=== PATIENT | female | born 1970 | race Caucasian/White ===

== ENCOUNTER 2021-12-27 15:34 | Outpatient (CLI) | payer OTHER, SELFPAY | END 2021-12-27 15:35 | disposition home or self-care (01) | LOC: LKVREF 15:39 | PROVIDERS: PCP Family Medicine; Visit Provider Nurse Practitioner Family | DX: F41.9 Anxiety disorder, unspecified (principal); Z79.899 Other long term (current) drug therapy ==

== ENCOUNTER 2022-01-08 13:32 | Outpatient (CLI) | payer OTHER, SELFPAY ==
--- NOTE | 2022-01-08 14:00 | CRLHL7_ITS ---
For Patients: As a result of the Century Cures Act, medical imaging exams and procedure reports are released immediately into your electronic medical record. You may view this report before your referring provider. If you have questions, please contact your health care provider. INDICATION: Delusional disorders. TECHNIQUE: Brain MRI without contrast. The following sequences were obtained: Sagittal T1 weighted sequence. DWI and ADC mapping sequences. Axial FLAIR and VINOD T2 weighted sequences. COMPARISON: None FINDINGS: No evidence of acute ischemia. No evidence of acute or chronic intracranial blood products. No pathologic intracranial signal abnormality. No mass effect or herniation. No hydrocephalus or extra-axial collections. The pituitary gland, parasellar structures and optic chiasm are normal. Posterior fossa is normal. All the major intracranial vascular structures demonstrate normal flow-related signal. The orbital contents are normal. No calvarial or skull base marrow replacing process. No obstructive sinus disease. No extracranial soft tissue findings. IMPRESSION: 1. No significant intracranial abnormality. Dictated by Cole Zavala MD @ 01/08/2022 7:17:53 PM (Electronically Signed)
== END 2022-01-08 13:33 | disposition home or self-care (01) ==
LOC: MRI 13:33
PROVIDERS: PCP Family Medicine; Visit Provider Nurse Practitioner Family
DX: F22 Delusional disorders (principal)
CPT/HCPCS: 70551

== ENCOUNTER 2024-10-18 15:28 | Outpatient (CLI) | payer OTHER, SELFPAY ==
--- NOTE | 2024-10-18 16:00 | MR_ITS ---
EXAM: MRI of the RIGHT ANKLE CLINICAL HISTORY: Pain and right ankle. Evaluate for Achilles tendon rupture. Injury. COMPARISONS: None available. TECHNICAL: MRI sequences of the right ankle: Axials: PD, T2FS Coronals: PD, T2FS Sagittals: PD, T2, STIR Axial oblique: PDFS Sedation: None Contrast: None FINDINGS: Joints and osseous structures: No fracture, subluxation, dislocation, tarsal coalition, or talar dome osteochondral lesion. Ligaments: Syndesmotic: Mild irregularity of the anterior inferior tibiofibular ligament and mild irregular spurring at of the distal fibula and tibia at the attachments of the anterior inferior tibiofibular ligament are findings consistent with sequelae of chronic sprain injury. The posterior inferior tibiofibular ligament and interosseous membrane are unremarkable. Anterior talofibular: Ill-definition and irregularity. Calcaneofibular: Ill definition and irregularity. Posterior talofibular: Intact. Deltoid: Unremarkable. Spring: Unremarkable. Sinus tarsi: Intact lateral cervical and medial interosseous ligaments. Bifurcate: Unremarkable lateral calcaneonavicular and medial calcaneocuboid ligaments. Calcaneocuboid: Unremarkable medial, dorsolateral and plantar ligaments. Lisfranc ligament complex: Not completely covered in the vopge-[id number] of this study. Flexor tendons: Posterior tibial: Intact. There are foci of mild edema-like signal within a type II accessory navicular and within the immediately adjacent portion of the navicular proper. Flexor digitorum longus: Intact. Flexor hallucis longus: Intact. Peroneal tendons: Mild peroneus longus tendinopathy from just above and extending just below the level of the distal fibular tip. The peroneus brevis tendon is within normal limits. No lateral subluxation. Extensor tendons: Tibialis anterior: Intact. Extensor hallucis longus: Intact. Extensor digitorum longus: Intact. Achilles tendon: Rupture of the Achilles tendon at the terminal myotendinous junction with proximal tendon retraction 7.5 cm proximal to the calcaneal insertion and distal tendon retraction 5.3 cm proximal to the calcaneal insertion with a gap of 2.2 cm between the torn tendon ends. Marked underlying Achilles tendinopathy. Mild to moderate retrocalcaneal bursitis. Plantar aponeurosis: Unremarkable. Moderately sized plantar calcaneal enthesophyte. Sinus Tarsi:?The sinus tarsi fat is intact. Tarsal tunnel: Unremarkable. IMPRESSION: 1. Rupture of the Achilles tendon at the terminal myotendinous junction with proximal tendon retraction 7.5 cm proximal to the calcaneal insertion and distal tendon retraction 5.3 cm proximal to the calcaneal insertion with a gap of 2.2 cm between the torn tendon ends. Marked underlying Achilles tendinopathy. Mild to moderate retrocalcaneal bursitis. 2. Ill-definition and irregularity of the anterior talofibular and calcaneofibular ligaments are findings consistent with sequelae of chronic sprain injuries. No acute ligamentous injury. 3. Mild irregularity of the anterior inferior tibiofibular ligament and mild irregular spurring at of the distal fibula and tibia at the attachments of the anterior inferior tibiofibular ligament are findings consistent with sequelae of chronic sprain injury. No acute ligamentous injury. 4. Foci of mild edema-like signal within a type II accessory navicular and within the immediately adjacent portion of the navicular proper are findings that can be seen with painful type II accessory navicular syndrome but are equivocal findings in this case. Correlate with any point tenderness, physical examinations, and clinical signs/symptoms. 5. Mild peroneus longus tendinopathy from just above and extending just below the level of the distal fibular tip. 6. No talar dome osteochondral lesion of the right ankle. RCB Electronically signed on 10/19/2024 10:01:00 AM by Simon Snyder M.D.
== END 2024-10-18 15:29 | disposition home or self-care (01) ==
LOC: MRI 15:29
PROVIDERS: Visit Provider Orthopaedic Surgery
DX: M25.571 Pain in right ankle and joints of right foot (principal); S93.431A Sprain of tibiofibular ligament of right ankle, initial encounter; S86.011A Strain of right Achilles tendon, initial encounter; S99.911A Unspecified injury of right ankle, initial encounter
CPT/HCPCS: 73721

== ENCOUNTER 2024-10-27 06:08 | Day surgery (SDC) | payer OTHER, SELFPAY ==
[2024-10-27] VITALS (13 sets, daily range): BP systolic 107–141; BP diastolic 63–91; PULSE 44–78; RESP 14–16; TEMP 36.1–36.3; O2SAT 97–99; BMI 27.8
[2024-10-27] MEDS: LACTATED RINGERS 1000 ML 1,000 ML 100 ML IV (07:00)
[2024-10-27] MEDS: SODIUM CHLORIDE 0.9 % (FLUSH) 10 ML SYRINGE IVF (07:17)
--- NOTE | 2024-10-27 07:20 | P.ORPRC_ITS ---
Procedure Note Date of procedure: 10/27/24 Procedure: PREOPERATIVE DIAGNOSIS: 1. Right Achilles tendon rupture POSTOPERATIVE DIAGNOSIS: 1. Right Achilles tendon rupture PROCEDURE: 1. Open right Achilles tendon repair SURGEON: Cecilio Carlisle MD. DRAMATIC CRITIC: Africa Rodrigez P.A.-C. - An information technology assistant was critical for this case to aid in patient positioning, tissue retraction, limb manipulation/positioning, and closure. ANESTHESIA: General anesthesia with popliteal nerve block TOURNIQUET: 54 minutes at 250 mm Hg ESTIMATED BLOOD LOSS: 5 mL COMPLICATIONS: None evident INDICATIONS: The patient is a pleasant 54-year-old female who sustained an acute right Achilles tendon rupture. MRI confirmed complete rupture of the Achilles tendon with 2 cm of gapping. Recommendation was subsequently made for surgical intervention consisting of Achilles tendon repair to allow for improved healing, plantar flexion strength, and reduce risk of re-rupture. FINDINGS: Complete rupture of the Achilles tendon near the musculotendinous junction approximately 5 cm proximal to its insertion on the calcaneus. DESCRIPTION OF PROCEDURE: Following a thorough discussion of risks, benefits, and alternatives to surgery, informed consent was obtained and the operative site was marked. A popliteal nerve block was performed by anesthesia staff. The patient was then brought to the operating room and general anesthesia was administered. Patient was then placed into the prone position. All bony prominences were well padded. He was given Ancef IV preoperatively for prophylaxis. A tourniquet was placed on patient's operative thigh and operative lower extremity was prepped and draped in usual sterile fashion. A surgical time-out was performed confirming patient identity, surgical site, and surgical procedure. A longitudinal incision was made along the medial border of the Achilles tendon centered over the rupture site. Incision was carried through the subcutaneous tissues creating full-thickness flaps. The paratenon surrounding the Achilles tendon was then bluntly dissected away from the subcutaneous tissues. A midline longitudinal incision was then made through the paratenon. Ruptured Achilles tendon was readily identified. Limited debridement was performed, and tendon was thoroughly irrigated cleared of hematoma. 1.7 mm suture tape was then placed through the proximal tendon in a Krackow fashion running retrograde along the medial side and then antegrade along the lateral border of the proximal tendon. A 2nd 1.7 mm suture tape was then placed in a Krackow fashion in a similar fashion through the distal aspect of the tendon. A Jared needle was then used to place suture limbs from the proximal tendon into the distal tendon, and suture limbs from the distal tendon into the proximal tendon. The foot was then plantar flexed, tendon ends were reapproximated, and FiberTape sutures were tied. Rupture site was then over run with a running epitendinous 3-0 Prolene suture. Wound was again irrigated with normal saline. The paratenon was then closed with a running 3-0 Vicryl suture. Tourniquet was released. Hemostasis was achieved with electrocautery. administrative services assistant then closed with 2-0 Vicryl inverted deep to subcutaneous stitches followed by running 2-0 Stratafix stitch and Dermabond glue. Sterile dressings were applied and a well-padded, short-leg posterior splint was applied by the surgical garment assembly supervisor with the foot in approximately 30? of plantar flexion. Patient was then rotated into the supine position awoken from anesthesia and transferred to the recovery room in stable condition. PLAN: 1. Nonweightbearing right lower extremity 2. Aspirin 81 mg p.o. daily for 2 weeks for DVT prophylaxis 3. Ice and elevation to help control pain and swelling 4. Tylenol and oxycodone and as needed basis for pain control 5. Follow-up in 10-14 days for wound check and conversion to cam boot with heel lifts 6. Will initiate formal physical therapy in 2 weeks per the Achilles tendon repair protocol.
--- NOTE | 2024-10-27 07:20 | W.PM.H&PU ---
History & Physical Update History & Physical Update H&P Reviewed and patient assessed: No changes noted
--- NOTE | 2024-10-27 07:26 | SUR.PREOP ---
TIME?OUT:?0723 PT/RN/MDA?VERIFICATION?OF?SURGICAL?SITE,?PROCEDURE,?AND?CONSENT OBTAINED?PRIOR?TO?INVASIVE?PROCEDURE.
[2024-10-27] MEDS: fentaNYL 100 MCG/2 ML inj IVP (07:27)
[2024-10-27] MEDS: MIDAZOLAM HCL 1 MG/ML inj IVP (07:27)
[2024-10-27] MEDS: CEFAZOLIN 1 GM inj IVP (07:35)
--- NOTE | 2024-10-27 09:34 | P.ANES_ITS ---
Anesthesia Charges Start Date/Time Anesthesia Start Date: 10/27/24 Anesthesia Start Time: 07:32 Stop Date/Time Anesthesia Stop Date: 10/27/24 Anesthesia Stop Time: 09:35 Coding CPT Codes CPT Codes: ANESTH ACHILLES TENDON SURG - 55103 ([id number]) P1 - NORMAL HEALTHY PATIENT, QZ - ACCOUNTS ADJUSTABLE CLERK SVC W/O LEADERSHIP COACH BY
--- NOTE | 2024-10-27 09:34 | W.ANESCHARGE ---
Anesthesia Charges Start Date/Time Anesthesia Start Date: 10/27/24 Anesthesia Start Time: 07:32 Stop Date/Time Anesthesia Stop Date: 10/27/24 Anesthesia Stop Time: 09:35 Coding CPT Codes CPT Codes: ANESTH ACHILLES TENDON SURG - 60153 ([id number]) P1 - NORMAL HEALTHY PATIENT, QZ - HEART NURSE SVC W/O FOOTWEAR MACHINERY INSTRUCTOR BY
--- NOTE | 2024-10-27 11:10 | W.PM.NB ---
Nerve Block Nerve Block Time Seen by Provider: 07:20 Date Seen: 10/27/24 Type of block requested by surgeon for post-operative analgesia: popliteal Side: right Time out performed: Yes Verification of patient name: Yes Verification of date of : Yes Site marking: site marked Name of person performing procedure: Boyd Montaño Continuous monitoring Was continuous monitoring of O2 sat, B/P, home administrator, recorded every 15 minutes?: Yes Procedure Checklist: sterile prep, needles and gloves Ultrasound guided. Images saved: Yes Medications given in 5ml increments after negative aspiration: Ropivicaine %: 0.5 mL: 20 Needle gauge: 20 Patient tolerated procedure well: Yes Additional comments: Injected in 5ml increments after negative aspiration Block Charges Block Charge (with Pro Fee): Sciatic Nerve Use of Ultrasound Machine for Block: Yes- US Guidance/pain block
== END 2024-10-27 11:53 | disposition home or self-care (01) ==
LOC: OR 06:09
PROVIDERS: Visit Provider Orthopaedic Surgery
PROC: (CPT 27650; principal; 2024-10-27 07:30)
DX: S86.011A Strain of right Achilles tendon, initial encounter (principal)
CPT/HCPCS: 27650; 01472; 64445; 76942; 97116; 97162; J0330; J0690; J1100; J2250; J2405; J2704; J2710; J2795; J3010; J7120

== ENCOUNTER 2025-01-26 13:45 | Outpatient (RCR) | payer OTHER, SELFPAY | END 2025-05-10 15:40 | disposition home or self-care (01) | PROVIDERS: Visit Provider Orthopaedic Surgery | DX: Z48.89 Encounter for other specified surgical aftercare (principal); Z51.89 Encounter for other specified aftercare | CPT/HCPCS: 97110; 97116; 97162 ==